=== PATIENT | male | born 1945 | race Caucasian/White ===

== ENCOUNTER 2016-09-05 08:39 | Day surgery (SDC) | payer MEDICARE, OTHER ==
[2016-09-04 11:57] VITALS: BMI 33.0
[2016-09-05] MEDS ORDERED: MIDAZOLAM HCL 2 MG/2 ML SINGLE DOSE VIAL ONE (11:22)
[2016-09-05] MEDS ORDERED: KETOROLAC TROMETHAMINE 30 MG/1 ML VIAL ONE (11:22)
[2016-09-05] MEDS ORDERED: PROPOFOL 20 ML ONE (11:23)
[2016-09-05] MEDS ORDERED: ceFAZolin SODIUM 1 GM VIAL IVPB ONE (11:31)
[2016-09-05] MEDS ORDERED: ceFAZolin SODIUM 1 GM VIAL ONE (11:31)
--- NOTE | 2016-09-05 11:40 | OP ---
Operative Note - Note: Operative Date: 09/05/16 Pre-Operative Diagnosis: Left 10 mm renal stone Operation: Left ESWL Lithotripsy Post-Operative Diagnosis: Same as Pre-op Surgeon: Fabian Atwood MD. Anesthesia: MAC
[2016-09-05] MEDS ORDERED: ONDANSETRON 4 MG/2 ML VIAL IVPUSH PRN (11:51)
[2016-09-05] MEDS ORDERED: IBUPROFEN 800 MG/8 ML IJ IVPB PRN (11:51)
[2016-09-05] MEDS ORDERED: oxyCODONE HCL 5 MG TABLET PO PRN (11:51)
[2016-09-05] MEDS ORDERED: ACETAMINOPHEN 325 MG TABLET (FP) PO PRN (11:51)
[2016-09-05] MEDS ORDERED: LACTATED RINGERS SOLUTION 1,000 ML IV SCH (12:00)
[2016-09-05] MEDS ORDERED: ONDANSETRON 4 MG/2 ML VIAL ONE (12:46)
[2016-09-05 12:54] VITALS: TEMP 98
[2016-09-05 13:58] VITALS: BP 155/74; PULSE 62
--- NOTE | 2016-09-06 11:42 | OP ---
DATE OF OPERATION: DATE OF DICTATION: 09/05/2016 PREOPERATIVE DIAGNOSIS: Left renal calculus. POSTOPERATIVE DIAGNOSIS: Left renal calculus. PROCEDURE: Left extracorporal shockwave lithotripsy. BRIEF HISTORY: This is a 71-year-old gentleman found to have a left-sided 1-cm stone. After discussing treatment options including observation the patient elected to undergo a lithotripsy. All treatment options were discussed with the patient in detail. BRIEF OPERATIVE NOTE: The patient was brought to the operating room and placed into supine position. Once the stone was localized using 3-D ultrasonography and fluoroscopy, the patient was sedated. Intravenous antibiotics were given. At this time approximately 2500 shocks were delivered in electromagnetic fashion. The patient tolerated the procedure well and was brought to the recovery room in stable and satisfactory condition. The stone appeared to fragment radiographically. He will be followed up in 2 weeks. ROX ZULUAGA M.D. [id number]
== END 2016-09-05 13:58 | disposition home or self-care (01) ==
LOC: JASU-SURG 08:39
PROVIDERS: ATTEND Urology
PROC: 0TF4XZZ Fragmentation in Left Kidney Pelvis, External Approach (ICD-10-PCS; principal; 2016-09-05 11:00)
DX: N20.0 Calculus of kidney (principal)
CPT/HCPCS: 94760